=== PATIENT | male | born 1940 | race Caucasian/White ===

== ENCOUNTER 2016-12-10 15:03 | Inpatient (IN) | payer OTHER ==
[~2016-12-10] VITALS: Ht 165.1 cm; Wt 71.9 kg
[~2016-12-10 15:03] MED LIST: AMLODIPINE10 MG PO; ASPIRIN81 M1 PO; ATI0.5 PO; BREO ELLIPTA1 POW IH; CARVEDILOL25 M1 PO; CARVEDILOL25 MG PO; CARVEDILOL3.125 M1 PO; COMINH INH; COUMADIN2 MG PO; COUMADIN2.5 MG PO; COUMADIN3 MG PO; COUMADIN5 MG PO; DALIRESP500 MCG PO; DETROL PO; DIALYVITE 8001 TAB PO; DIO160 PO; DUONEB3 ML NEB; ECO81 PO; HEP25PM IV; HUMALOG KWIK PEN; HUMALOG100 U/ML SC; HUMI SC; IMODIUM A-D2 M2 PO; K-POTASSIUM CH20 ME1 PO; LAC PO; LANTUS SOLO STAR; LANTUS SOLOS100 U/M1 SC; LANTUS SOLOS100 U/M1 SQ; LASIX40 MG PO; LASIX80 MG PO; LEV500 PO; LEVAQUIN750 MG PO; LORAZEPAM1 MG PO; LUMIGAN2.5 M1 OP; MEDDP PO; METOLAZONE5 MG PO; METOPROLOL50 MG PO; NITROSTAT0.4 MG SL; PRAVASTATIN SOD40 M1 PO; PRAVASTATIN40 M1 PO; PROAIR HFA0.09 MG/A1 IH; PULMICORT0.5 MG/2 M IH; RENVELA800 M1 PO; SIMVASTATIN40 MG PO; SYMBICORT1 AE2 IH; TYLENOL EXTRA500 M2 PO; [UNRECOGNIZED DRUG - OTHER] PO
[2016-12-10 17:30] LABS: PLATELET COUNT 312 x10^3mcL (130-400); RED CELL DISTRIBUTION WIDTH 14.4 % (11.5-14.5)
[2016-12-10 17:34] LABS: T3 TOTAL 0.74 ng/mL
[2016-12-10 17:37] LABS: ALKALINE PHOSPHATASE 75 U/L (46-116); AST/SGOT 9 U/L (15-37); BILIRUBIN TOTAL 0.63 mg/dL (0.20-1.00); CALCIUM 8.9 mg/dL (8.5-10.1); CARBON DIOXIDE 30.1 mmol/L (21-32); CHLORIDE SERUM 102 mmol/L (98-107); CHOLESTEROL 171 mg/dL (<200); CHOLESTEROL/HDL RATIO 3.2; GLUCOSE SERUM 286 mg/dL (74-106); HDL CHOLESTEROL 53 mg/dL (40-60); LIPASE 166 IU/L (73-393); POTASSIUM SERUM 4.1 mmol/L (3.5-5.1); SODIUM SERUM 142 mmol/L (136-145); TOTAL PROTEIN, SERUM 7.7 g/dL (6.4-8.2); TRIGLYCERIDES 130 mg/dL (<150)
[2016-12-10 17:42] LABS: ALBUMIN 3.1 g/dL (3.4-5.0)
[2016-12-10 17:43] LABS: CREATININE SERUM 6.2 mg/dL (0.7-1.3)
[2016-12-10 18:06] LABS: FREE T4 1.04 ng/dL (0.76-1.46)
[2016-12-10 18:07] LABS: ALT/SGPT 13 U/L (16-63)
[2016-12-10 18:11] LABS: UA SPECIFIC GRAVITY 1.015 (1.005-1.035); microscopic required? YES; urine erythrocyte 2+ (NEGATIVE)
[2016-12-10] MEDS ORDERED: CARVEDILOL3.125 M1 PO (19:34)
[2016-12-10 19:37] LABS: BAND NEUTROPHIL 7 % (0-10); SEGMENTED NEUTROPHILS 78 % (37-75)
[2016-12-10 19:38] LABS: MONOCYTE 9 % (0-7); PLATELET MORPHOLOGY PLATELETS NORMAL; rbc morphology (normal/abnorm) NORMAL (NORMAL)
[2016-12-10 19:58] LABS: MAGNESIUM 2.1 mg/dL (1.8-2.4); PHOSPHOROUS 3.7 mg/dL (2.5-4.9)
[2016-12-10] MEDS ORDERED: DIGOXIN0.125 M1 PO (22:04)
[2016-12-11] VITALS (7 sets, daily range): BP systolic 86–171; BP diastolic 41–78
[2016-12-11] MEDS ORDERED: LORAZEPAM0.5 MG PO (05:43)
[2016-12-11 09:25] LABS: PLATELET COUNT 236 x10^3mcL (130-400)
[2016-12-11 09:35] LABS: RED CELL DISTRIBUTION WIDTH 14.6 % (11.5-14.5)
[2016-12-11 09:38] LABS: CALCIUM 7.7 mg/dL (8.5-10.1); CARBON DIOXIDE 27.8 mmol/L (21-32); CHLORIDE SERUM 108 mmol/L (98-107); GLUCOSE SERUM 175 mg/dL (74-106); MAGNESIUM 1.7 mg/dL (1.8-2.4); PHOSPHOROUS 5.2 mg/dL (2.5-4.9); POTASSIUM SERUM 4.2 mmol/L (3.5-5.1); SODIUM SERUM 145 mmol/L (136-145)
[2016-12-11 09:41] LABS: CREATININE SERUM 7.4 mg/dL (0.7-1.3)
[2016-12-11 11:45] LABS: BAND NEUTROPHIL 5 % (0-10); BASOPHIL 0 % (0-2); MONOCYTE 4 % (0-7); SEGMENTED NEUTROPHILS 88 % (37-75)
[2016-12-11 11:47] LABS: PLATELET MORPHOLOGY PLATELETS NORMAL; rbc morphology (normal/abnorm) ABNORMAL (NORMAL)
[2016-12-12] VITALS: BP 105/54
[2016-12-12 06:20] VITALS: BP 150/60
[2016-12-12 10:05] VITALS: BP 115/48
[2016-12-12 13:04] VITALS: BP 124/53
[2016-12-12 14:49] LABS: BASOPHIL % 0.2 % (0-2); PLATELET COUNT 257 x10^3mcL (130-400)
[2016-12-12 15:00] LABS: RED CELL DISTRIBUTION WIDTH 14.6 % (11.5-14.5)
[2016-12-12 15:12] LABS: CALCIUM 9.1 mg/dL (8.5-10.1); CARBON DIOXIDE 30.5 mmol/L (21-32); CHLORIDE SERUM 96 mmol/L (98-107); GLUCOSE SERUM 205 mg/dL (74-106); POTASSIUM SERUM 4.1 mmol/L (3.5-5.1); SODIUM SERUM 135 mmol/L (136-145)
[2016-12-12 15:22] LABS: CREATININE SERUM 7.2 mg/dL (0.7-1.3)
[2016-12-12 17:13] VITALS: BP 122/47
[2016-12-13 06:12] VITALS: BP 128/53
[2016-12-13 06:24] LABS: BASOPHIL % 0.6 % (0-2); PLATELET COUNT 274 x10^3mcL (130-400); RED CELL DISTRIBUTION WIDTH 14.3 % (11.5-14.5)
[2016-12-13 06:26] LABS: CALCIUM 8.4 mg/dL (8.5-10.1); CARBON DIOXIDE 26.6 mmol/L (21-32); CHLORIDE SERUM 98 mmol/L (98-107); GLUCOSE SERUM 185 mg/dL (74-106); MAGNESIUM 1.9 mg/dL (1.8-2.4); POTASSIUM SERUM 3.9 mmol/L (3.5-5.1); SODIUM SERUM 136 mmol/L (136-145)
[2016-12-13 06:41] LABS: CREATININE SERUM 7.7 mg/dL (0.7-1.3)
[2016-12-13 09:52] VITALS: BP 139/57
[2016-12-13 14:06] VITALS: BP 138/56
[2016-12-13 18:15] VITALS: BP 103/58
[2016-12-13 20:46] VITALS: BP 148/58
[2016-12-14 05:29] VITALS: BP 149/53
[2016-12-14 06:30] LABS: BASOPHIL % 0.7 % (0-2); PLATELET COUNT 300 x10^3mcL (130-400); RED CELL DISTRIBUTION WIDTH 14.4 % (11.5-14.5)
[2016-12-14 06:47] LABS: CALCIUM 8.6 mg/dL (8.5-10.1); CARBON DIOXIDE 24.2 mmol/L (21-32); CHLORIDE SERUM 101 mmol/L (98-107); GLUCOSE SERUM 147 mg/dL (74-106); PHOSPHOROUS 5.3 mg/dL (2.5-4.9); POTASSIUM SERUM 4.2 mmol/L (3.5-5.1); SODIUM SERUM 137 mmol/L (136-145)
[2016-12-14 06:54] LABS: CREATININE SERUM 8.7 mg/dL (0.7-1.3)
[2016-12-14 09:16] VITALS: BP 149/53
[2016-12-14 10:01] VITALS: BP 150/60
[2016-12-14] MEDS ORDERED: SIMETHICONE80 MG CH (10:12)
[2016-12-14] MEDS ORDERED: APAP/HYDROCODON1 T13 PO (10:12)
[2016-12-14] MEDS ORDERED: MIRUD PO (10:13)
[2016-12-14] MEDS ORDERED: COL100 PO (10:13)
[2016-12-14] MEDS ORDERED: NEP PO (10:14)
[2016-12-14] MEDS ORDERED: LAC PO (10:31)
[2016-12-14] MEDS ORDERED: FLA500 PO (10:31)
[2016-12-14] MEDS ORDERED: LEVAQUIN500 M1 PO (10:31)
== END 2016-12-14 12:00 | disposition home health service (06) | DRG 853 ==
LOC: ED 15:03 → DU 19:00 → MU 12-13 14:34
PROVIDERS: Emergency Medicine; Specialist; Surgery; ADMIT Family Medicine
PROC: 0DTJ0ZZ Resection of Appendix, Open Approach (ICD-10-PCS; principal; 2016-12-10 19:30)
DX: A41.1 Sepsis due to other specified staphylococcus (principal); N17.0 Acute kidney failure with tubular necrosis; N18.6 End stage renal disease; N12 Tubulo-interstitial nephritis, not specified as acute or chronic; K35.80 Unspecified acute appendicitis; I42.9 Cardiomyopathy, unspecified; R65.20 Severe sepsis without septic shock; I48.2 Chronic atrial fibrillation; E11.65 Type 2 diabetes mellitus with hyperglycemia; E11.51 Type 2 diabetes mellitus with diabetic peripheral angiopathy without gangrene; J44.9 Chronic obstructive pulmonary disease, unspecified; Z68.25 Body mass index [BMI] 25.0-25.9, adult; Z87.891 Personal history of nicotine dependence; Z79.01 Long term (current) use of anticoagulants; Z79.4 Long term (current) use of insulin; Z99.2 Dependence on renal dialysis; Z16.24 Resistance to multiple antibiotics
CPT/HCPCS: 36600; 82962; 83880; 84439; 97110-GP; 97116-GP; 97530-GP; J0885-EC; J1170; J1580; J1644; J1885; J1956; J2250; J3010; J3370; J3490; J7030; J7040; J7120; J7620; J7626; Q0092

== ENCOUNTER 2017-01-07 16:58 | Emergency (ER) | payer OTHER, MEDICAID ==
[~2017-01-07 16:58] MED LIST changes: +APAP/HYDROCODON1 T13 PO; +COL100 PO; +DIGOXIN0.125 M1 PO; +FLA500 PO; +LEVAQUIN500 M1 PO; +LORAZEPAM0.5 MG PO; +MIRUD PO; +NEP PO; +SIMETHICONE80 MG CH
[2017-01-07 17:51] LABS: microscopic required? YES; urine erythrocyte 3+ (NEGATIVE)
[2017-01-07 21:14] VITALS: BP 176/84
== END 2017-01-07 21:14 | disposition home or self-care (01) ==
LOC: ED 16:58
PROVIDERS: Emergency Medicine
DX: I86.1 Scrotal varices (principal); N39.0 Urinary tract infection, site not specified; E11.9 Type 2 diabetes mellitus without complications; I10 Essential (primary) hypertension; Z88.0 Allergy status to penicillin; Z79.891 Long term (current) use of opiate analgesic; Z79.01 Long term (current) use of anticoagulants; Z79.899 Other long term (current) drug therapy
CPT/HCPCS: Q0092

== ENCOUNTER 2017-06-09 18:49 | Inpatient (IN) | payer OTHER, MEDICAID ==
[~2017-06-09] VITALS: Ht 165.1 cm; Wt 64.0 kg
[~2017-06-09 18:49] MED LIST changes: -PROAIR HFA0.09 MG/A1 IH; +PROAIR HFA8.5 GM
--- NOTE | 2017-06-09 19:05 | NUR ---
PT BROUGHT TO ED [facility]IA [facility] FROM DIALYSIS FOR GENERALIZED WEAKNESS AND CHEST PAIN. PER REPORT FROM MEDIC PT WAS APPROX 30MINS FROM COMPLETING DIALYSIS AND HE WAS EATING AND FELT SOMETHING STUCK IN HIS CHEST. PT DENIES ANY CHEST PAIN AT THIS TIME. PT AWAKE AND ALERT, RESPS EVEN AND UNLABORED, SKIN WARM/DRY TO TOUCH, NO S/S OF DISTRESS NOTED.
--- NOTE | 2017-06-09 19:10 | NUR ---
MSE COMPLETED BY DR. OLGUIN.
--- NOTE | 2017-06-09 19:22 | NUR ---
REPORT GIVEN TO PEDRO GARCIA.
[2017-06-09 19:49] LABS: PLATELET COUNT 333 x10^3mcL (130-400)
--- NOTE | 2017-06-09 19:50 | NUR ---
PATIENT SEEN WITH COMPLAINT OF RHR, AND CHEST PRESSURE. BLOOD PRESSURE IS LOW. PATIENT IS ALERT AND VERBAL. MD AWARE OF LOW BP. SALINE BOLUS GIVE ,THEN CARDIZEN WAS GIVEN.
[2017-06-09 20:15] LABS: CK-MB 1.5 ng/mL (0-3.6)
[2017-06-09 20:18] LABS: BASOPHIL % 0.6 % (0-2)
[2017-06-09 20:30] LABS: ALKALINE PHOSPHATASE 93 U/L (46-116); BILIRUBIN TOTAL 0.72 mg/dL (0.20-1.00); CALCIUM 8.7 mg/dL (8.5-10.1); CARBON DIOXIDE 33.2 mmol/L (21-32); CHLORIDE SERUM 91 mmol/L (98-107); GLUCOSE SERUM 187 mg/dL (74-106); POTASSIUM SERUM 3.5 mmol/L (3.5-5.1); SODIUM SERUM 135 mmol/L (136-145); TOTAL PROTEIN, SERUM 8.1 g/dL (6.4-8.2)
--- NOTE | 2017-06-09 20:30 | NUR ---
PATIENT'S HEART RATE REMAINS 133-135 . POST 5 MG CARDIZEN. PATIENT IS ASKING FOR FOOD FREQUENTLY, CLAIM HE GET HYPOGLYCEMIC WHEN HUNGRY. MD AWARE. NO FOOD PER MD. 500 ML BOLUS GIVEN AND CARDIZEN 10 MG GIVEN.
[2017-06-09 20:33] LABS: ALBUMIN 3.1 g/dL (3.4-5.0)
[2017-06-09 20:37] LABS: CREATININE SERUM 4.9 mg/dL (0.7-1.3)
[2017-06-09 20:50] LABS: T3 TOTAL 0.75 ng/mL
[2017-06-09 21:00] LABS: FREE T4 1.1 ng/dL (0.76-1.46); FREE THYROXINE INDEX 2.2 ug/dL (1.4-4.5); T4(THYROXINE) 6.2 ug/dL (4.7-13.3)
--- NOTE | 2017-06-09 21:01 | NUR ---
PATIENT KEPT ASKING FOR FOOD. SANDWICH GIVEN, JUICE GIVEN. PATIENT IS ALERT AND ORIENTED. DENIES ANY CHEST PAIN.
[2017-06-09 21:10] LABS: AST/SGOT 35 U/L (15-37)
[2017-06-09 21:18] LABS: ERYTHROCYTE SED RATE 90 mm/hr (0-20)
--- NOTE | 2017-06-09 21:21 | NUR ---
REPORT WAS GIVEN TO NAVA. PATIENT TRANSPORTED TO ROOM 218B
[2017-06-09 21:31] LABS: C REACTIVE PROTEIN < 0.2 mg/dL (<=0.9)
[2017-06-09 21:35] LABS: ALT/SGPT 13 U/L (16-63)
--- NOTE | 2017-06-09 21:45 | NUR ---
REPORT WAS GIVE AND THE PATIENT TRANSPORTED TO ROOM AT THIS TIME.
--- NOTE | 2017-06-09 21:46 | NUR ---
PATIENT MEDICATED WITH ASA . PATIENT MEDICATED WITH CARDIZEM 5 MG.
--- NOTE | 2017-06-09 22:10 | NUR ---
RECEIVED PT FROM ED VIA SELIN, STATED THAT WHEN HE WAS IN DIALYSIS, HE FELT SOMETHING WAS STUCKED ON HIS CHEST AFTER EATING. PT IS AAOX4. NO SOB NOTED, LUNG SOUNDS CTA. ON 2LPM/NC, O2 SAT=99%. DENIES CHEST PAIN/PRESSURE, ST W/ BBB AND DEPRESSED ST ON THE MONITOR, HR AT 130'S. DENIES ABDOMINAL DISCOMFORT. BOWEL SOUNDS ACTIVE. PT ON HEMODILAYSIS EVERY MWF, PT STATED THAT 2.5L WAS REMOVED DURING DIALYSIS. PT STATED THAT HE STILL VOIDS. SIDE RAILS UPX2. CALL LIGHT ON REACH. ENDORSED TO PRIMARY NURSE ELISABET FOR CONTINUITY OF CARE.
[2017-06-09 22:15] VITALS: BP 118/71
[2017-06-09 22:19] VITALS: BP 118/71
[2017-06-09 22:30] VITALS: Ht 165.1 cm; Wt 64.0 kg
--- NOTE | 2017-06-09 22:34 | NUR ---
PT REQUESTING SOME MEDICATION TO HELP SLEEP. DENIES ANY PAIN OR DISCOMFORT AT THIS TIME. REMAINS ON O2 2L VIA NC. NO S/S OF RESPIRATORY DISTRESS NOTED. DR. KING NOTIFIED AND AWARE; CURRENTLY IN TO SEE PT.
[2017-06-09] MEDS ORDERED: NEPHRO-VITE VITA1 EA PO (23:26)
[2017-06-09] MEDS ORDERED: TAMSULOSIN HYD0.4 M1 PO (23:28)
[2017-06-09 23:58] LABS: LIPASE 405 IU/L (73-393); MAGNESIUM 1.8 mg/dL (1.8-2.4); PHOSPHOROUS 2.8 mg/dL (2.5-4.9)
[2017-06-10] VITALS (8 sets, daily range): BP systolic 91–140; BP diastolic 39–66
[2017-06-10 00:01] LABS: AMYLASE 128 U/L (25-115)
[2017-06-10 00:02] LABS: CHOLESTEROL 225 mg/dL (<200); CHOLESTEROL/HDL RATIO 7.3; HDL CHOLESTEROL 31 mg/dL (40-60); TRIGLYCERIDES 1213 mg/dL (<150)
--- NOTE | 2017-06-10 00:40 | NUR ---
PT STILL C/O NOT BEING ABLE TO SLEEP. PT STATES, "I GUESS I'M FEELING TENSE." NOTED BP 98/52, MAP 63, HR 136. REMAINS ON O2 2L VIA NC. NO S/S OF RESPIRATORY DISTRESS NOTED. DR. KING NOTIFIED AND AWARE. AWAITING NEW ORDERS.
--- NOTE | 2017-06-10 01:08 | NUR ---
PT'S HR CURRENTLY IN HIGH 80'S TO LOW 90'S. DENIES ANY CHEST PAIN OR HEADACHE. PT JUST COMPLAINS OF FEELING "TENSE." NO S/S OF RESPIRATORY DISTRESS NOTED. IV NS 500 ML BOLUS INFUSING WELL TO RIGHT FA. CALL LIGHT WITHIN REACH. WILL CONTINUE TO MONITOR.
--- NOTE | 2017-06-10 02:15 | NUR ---
PT RESTING WITH EYES CLOSED. AROUSABLE WITH VERBAL AND TACTILE STIMULI. REMAINS ON O2 2L VIA NC. NO S/S OF RESPIRATORY DISTRESS NOTED. RECHECKED BP 140/49, MAP 79, HR 86. DENIES ANY PAIN OR DISCOMFORT. NO S/S OF DISTRESS NOTED. CALL LIGHT WITHIN REACH. WILL CONTINUE TO MONITOR.
[2017-06-10 03:54] LABS: BASOPHIL % 0.7 % (0-2); PLATELET COUNT 296 x10^3mcL (130-400)
[2017-06-10 03:58] LABS: RED CELL DISTRIBUTION WIDTH 14.8 % (11.5-14.5)
[2017-06-10 04:02] LABS: CALCIUM 8.1 mg/dL (8.5-10.1); CARBON DIOXIDE 32.2 mmol/L (21-32); CHLORIDE SERUM 98 mmol/L (98-107); GLUCOSE SERUM 136 mg/dL (74-106); POTASSIUM SERUM 3.8 mmol/L (3.5-5.1); SODIUM SERUM 135 mmol/L (136-145)
[2017-06-10 04:16] LABS: CREATININE SERUM 5.9 mg/dL (0.7-1.3)
--- NOTE | 2017-06-10 04:43 | NUR ---
RECEIVED CRITICAL LABS CREATININE 5.[address] KING NOTIFIED AND AWARE OF LABS TRENDING UP.
--- NOTE | 2017-06-10 06:10 | NUR ---
PT SLEPT INTERMITTENTLY THROUGHOUT THE NIGHT. AWAKE AND ALERT AT THIS TIME. REMAINS ON O2 2L VIA NC. NO S/S OF RESPIRATORY DISTRESS NOTED. BREATHING EQUAL AND UNLABORED. IV TO RIGHT FA PATENT AND IV NS INFUSING WELL. HEPARIN LOADING DOSE 4,100 UNITS ADMINISTERED AND IV HEPARIN DRIP INITIATED AND INFUSING AT 800 UNITS/HR. NEXT SCHEDULE PTT DOSE ORDERED AT 1200. PT CURRENTLY SITTING UP IN BED. DENIES CHEST PAIN OR ANY PAIN OR DISCOMFORT. BED IN LOW POSITION. SIDE RAILS UP. CALL LIGHT WITHIN REACH. WILL CONTINUE TO MONITOR.
--- NOTE | 2017-06-10 08:00 | NUR ---
ALERT AND ORIENTED. BREATHING FREELY ON 02 2L NC. HOB ELEVATED. SITTING UP FOR BREAKFAST. NS INFUSING 105CC HOUR, HEPARIN INFUSING 800 UNITS Q 1 HOUR. NEXT PTT NOON. DENIES ANY PAIN. TELE # 5 SFIB,BBB, DEPRESSED ST SEGMENT. BRP W/ MINIMAL ASSIST. VSS. CALL WITHIN REACH.
[2017-06-10 08:17] LABS: UA SPECIFIC GRAVITY 1.015 (1.005-1.035); microscopic required? YES; urine erythrocyte TRACE (NEGATIVE)
[2017-06-10 08:29] LABS: AMPHETAMINE QUAL UR NONE DETECTED (NEG <=1000)
--- NOTE | 2017-06-10 09:33 | NUR ---
ECHO PENDING DONE 12/05.
--- NOTE | 2017-06-10 13:54 | NUR ---
PTT 48.7. NO CHANGE IN HEPARIN INFUSION RATE. CONTINUE AT 800 UNITS Q 1 HOUR. NEXT PTT 1800.
--- NOTE | 2017-06-10 14:16 | NUR ---
REPORTED FROM LAB TROP 1.907. PT IS ON HEPARIN RIP.
--- NOTE | 2017-06-10 15:17 | NUR ---
DR. CHANDLER INFORMED OF TROP 1.907. CONTINUE ON HEPARIN DRIP.
--- NOTE | 2017-06-10 16:14 | NUR ---
REPORTED FROM LAB BLOOD IS GRAM (+) COCCI IN CLUSTERS. INFORMED RESIDENT.
--- NOTE | 2017-06-10 16:52 | NUR ---
REPORTED BP 110/39 TO RESIDENT.
--- NOTE | 2017-06-10 19:03 | NUR ---
RESTING QUIETLY. GOOD APPETITE WITH DINNER. SEEN BY DR. HUGHES THIS EVENING. ORDER FOR HEMODIALYSIS TOMORROW. RECEIVED FIRST DOSE OF CLEOCIN, FIRST DOSE LEVAQUIN INFUSING. SUPERVISION WITH BRP. HEPARIN CONTINUES 800 UNITS Q 1 HOUR. WAITING FOR RESULTS ON PTT. CALL LIGHT WITHIN REACH.
--- NOTE | 2017-06-10 19:30 | NUR ---
RECEIVED PT AWAKE AND ALERT. AOX4. VERBAL WITH CLEAR SPEECH. PT HAD JUST FINISHED EATING DINNER. ON O2 2L VIA NC. DENIES ANY SOB. NO S/S OF RESPIRATORY DISTRESS NOTED. LUNGS CLEAR BILATERALLY. ON TELE 5, SR WITH DEPRESSED ST. DENIES ANY CHEST PAIN. ABD SOFT AND ROUND. BOWEL SOUNDS ACTIVE. SKIN WARM AND DRY. IV TO RIGHT FA AND RIGHT HAND PATENT AND INTACT. NO S/S OF INFECTION NOTED. IV NS INFUSING WELL. IV HEPARIN INFUSING AT 800 UNITS/HR. AWAITING PTT LAB RESULT. PT DENIES ANY PAIN OR DISCOMFORT AT THIS TIME. NO S/S OF DISTRESS NOTED. REPOSITIONED FOR COMFORT. SIDE RAILS UP. BED IN LOW POSITION. CALL LIGHT WITHIN REACH. WILL CONTINUE TO MONITOR.
--- NOTE | 2017-06-10 20:00 | NUR ---
PTT RESULT 40.8. REBOLUSED 2,800 UNITS AND INCREASED INFUSION TO 900 UNITS/HR PER HEPARIN PROTOCOL. PT WITH NO S/S OF DISTRESS OR DISCOMFORT NOTED. NEXT PTT LAB DRAW AT 0000.
--- NOTE | 2017-06-10 21:08 | NUR ---
PT C/O ANXIETY AND NOT BEING ABLE TO SLEEP. PRN ATIVAN 0.5 MG PO GIVEN. NO S/S OF RESPIRATORY DISTRESS NOTED. ON O2 2L VIA NC. RECEIVED ROUTINE MEDICATIONS AND SWALLOWED WITHOUT DIFFICULTY. DENIES ANY PAIN. NO S/S OF DISTRESS NOTED. CALL LIGHT WITHIN REACH. WILL CONTINUE TO MONITOR.
--- NOTE | 2017-06-10 22:09 | NUR ---
PT STILL C/O NOT BEING ABLE TO SLEEP. DR. RASHID NOTIFIED AND AWARE. ATIVAN 0.5 MG PO GIVEN PER MD ORDER. WILL CONTINUE TO MONITOR.
--- NOTE | 2017-06-11 00:10 | NUR ---
PT AWAKE AND ALERT. BREATHING EQUAL AND UNLABORED. NOTED NASAL CANNULA OFF, 95% RA. DENIES ANY SOB. NO S/S OF RESPIRATORY DISTRESS NOTED. CURRENTLY, LABS BEING DRAWN FOR PTT. AWAITING PTT RESULTS.
--- NOTE | 2017-06-11 01:26 | NUR ---
RECEIVED CRITICAL LAB PTT 51.1. NO CHANGE IN DOSAGE AT THIS TIME. IV HEPARIN REMAINS INFUSING AT 900 UNITS/HR. NEXT PTT LAB DRAW ORDERED AT 0520.
--- NOTE | 2017-06-11 05:53 | NUR ---
PT SLEPT WELL THROUGHOUT THE NIGHT. ALERT AND AWAKE AT THIS TIME. BREATHING EQUAL AND UNLABORED. NO S/S OF RESPIRATORY DISTRESS NOTED ON ROOM AIR. IV NS PATENT AND INFUSING WELL. IV HEPARIN DRIP INFUSING AT 900 ML/HR. AWAITING PTT LAB DRAW. DENIES ANY PAIN OR DISCOMFORT AT THIS TIME. NO S/S OF DISTRESS NOTED. CALL LIGHT WITHIN REACH. WILL CONTINUE TO MONITOR.
[2017-06-11 06:23] VITALS: BP 128/62
[2017-06-11 07:32] LABS: PLATELET COUNT 288 x10^3mcL (130-400)
--- NOTE | 2017-06-11 08:00 | NUR ---
RECEIVED PATIENT ALERT ADN ORIENTED TIMES FOUR. VITALS AT [facility] TIMEAT 98.2, 90, 22. 128/62, 97%. NOTED LABS ARE THE AIC AT 7.3, WBCS AT 13.3, PT AT 43.4, PATIENT WITH DIGOXIN AND THE RESPIRATORY RATE IS AT 22 AND HE DENIE SANY ACTURE REPIRSTOYR DISTRESS. PATIENT IS ANXIOUS AND ASKS A LOT OF QUESTIONS THAT THE PATIENT MAY OR MAY NOT HAVE, SOME TRACE EDEMA NOTED TO THE LOWER EXTREMITE SAS WELL SOME TO HTE HANDS NOTED. PATIETN ON INSULIN AND RECEIVED INSULIN COVERAGE THIS AM. PATIENT IS ANXIOUS TO BE DIALSYSED WELL TRANSFER FOR PLANS TO [facility] FOR HEART SURGERY.
[2017-06-11 08:07] LABS: CALCIUM 9.1 mg/dL (8.5-10.1); CARBON DIOXIDE 25.9 mmol/L (21-32); CHLORIDE SERUM 101 mmol/L (98-107); GLUCOSE SERUM 155 mg/dL (74-106); MAGNESIUM 2.4 mg/dL (1.8-2.4); PHOSPHOROUS 6.7 mg/dL (2.5-4.9); SODIUM SERUM 139 mmol/L (136-145)
[2017-06-11 09:06] LABS: CREATININE SERUM 7.8 mg/dL (0.7-1.3)
--- NOTE | 2017-06-11 10:14 | NUR ---
PATIENT ASKED TO SPEAK WITH THE DIRECTOR AND PROFESSOR. CALLED AND SHE WILL COME TO TALK TO THE PATIETN. PATIENT IS ANXIOUS AND IS REQUESTING TO HAVE BLOOD SUGAR TAKEN.
--- NOTE | 2017-06-11 10:18 | NUR ---
PER PATIENT REQUEST CHECKED BLOOD SUGAR AND AT 174 AT THIS TIME. PATIENT WAS AT 160 EARLIER AND RECEIVED COVERAGE. THE ORDER ENTRY ADMINISTRATOR IS TO SEE THE PATIENT PER HIS REQUEST.
[2017-06-11 10:25] VITALS: BP 146/61
[2017-06-11 14:01] VITALS: BP 143/66
--- NOTE | 2017-06-11 15:13 | NUR ---
CALLED RECIEVED FROM [facility]ORS [facility] OFFICE AND THEY ARE AWARE NO ORDER HAVE BEEM RECIEVE NAMITA CARRIED OUT THE PATIENT HAS NO BED ASSIGNMENT.
--- NOTE | 2017-06-11 15:14 | NUR ---
BLOOD SUGAR AT 1200 AT 169 AND NO COVERAGE WAS INDICATED AT THIS TIME DUE TO [facility].
[2017-06-11 17:56] VITALS: BP 113/54
--- NOTE | 2017-06-11 19:00 | NUR ---
NUMBERSOUS CONVERGATIONS WITH THE RETAIL SELLING FLOOR LEADER AND PATIENT CONTINUED TO REQUEST INTERVENTION WITH [facility] HE WANTS THE PROCEDURE PLANED TODAY. THERE IS NOT BED AVAILABLE AND THE PATIENT HAS BEEN ADVISED SEVERAL TIMES. HE HAS CALLED DR HUGHES AND [facility]IS CORTES SEVERAL TIMES WELL. PATIEN TWANTS TO BE HOME FOR X MAS . RETAIL SELLING FLOOR LEADER ADVISED THAT HE CAN LEAVE IF HE WISHES BUT THIS WILL NOT CHANGE THE FACT THAT HE NEEDS TO BE TRANSFERED TO A FACILITY TO PREFORM THE CATH ANYWAY. DR HUGHES HAD ARRANGED A HOLD FOR THE CATH AT [facility] BUT NO BED AND PATIENTS AT BEDSIDE AND PATIENT HAD 2000 CC OUPUT WITH THE DIALYSIS TODAY.
--- NOTE | 2017-06-11 20:13 | NUR ---
SHIFT REASSESSMENT DONE.PATIENT ALERT AND ORIENTED. AT BEDSIDE VISITING,SUPPORTIVE OF CARE.BREATHING EASY.MILD GEN WEAKNESS BUT AMBULATORY.NS ORDERED,HEPARIN PROTOCOL AT 900 UNITS,PTT AT THIS TIME,63.NO CHANGE,REMAINS AT 900 UNITS.WILL DO PTT IN 4 HOURS.HAD HD TODAY 1999 OUT,AV SHUNT LUE,HD ACCESS.PATIENT WAITING FOR BED,ALAMANCE.CALL LIGHT IN REACH.
[2017-06-11 20:15] VITALS: BP 143/61
--- NOTE | 2017-06-11 20:46 | NUR ---
NEXT PTT AT MIDNITE,ALREADY BEEN ORDERED.
--- NOTE | 2017-06-11 21:41 | NUR ---
PATIENT ALL PM MEDS GIVEN,WANTED ATIVAN,AND GIVEN,HELP HIM SLEEP.
--- NOTE | 2017-06-12 01:30 | NUR ---
PATIENT DO NOT WANT HIS PTT DONE UNTIL BLOOD PRESSURE IS CHECK,140/80.PATIENT WANTING MORE ATIVAN,GIVEN DILAUDID EARLIER.NOW GIVEN FOR TODAYS DATE,ALSO GIVEN ZOFRAN IVP.
--- NOTE | 2017-06-12 02:45 | NUR ---
PTT AT THIS TIME 51.7,THERAPEUTIC.NEXT PTT IS TOMORROW.
--- NOTE | 2017-06-12 04:03 | NUR ---
DR GAY LAGUNAS NS,PRESENT IV ORDER D5 NS AT 100 CC/ HOUR.MPO AFTER MIDNITE IN CASE HE WILL BE TRANSFER TO [place],CARDIAC CATH PLAN.
[2017-06-12 04:16] VITALS: BP 151/71
--- NOTE | 2017-06-12 05:36 | NUR ---
I AND O MEASURED.PATIENT STILL URINATE EVEN HE IS A HD PATIENT.PATIENT ABLE TO REST AFTER SECOND ATIVAN GIVEN.HEPARIN DRIP AT 900 UNITS.D5 1/2 NS AT 100 CC. HOUR.WILL ENDORSE TO NEXT SHIFT.CALL LIGHT IN REACH.
[2017-06-12 06:50] LABS: PLATELET COUNT 298 x10^3mcL (130-400)
[2017-06-12 06:58] LABS: RED CELL DISTRIBUTION WIDTH 14.8 % (11.5-14.5)
[2017-06-12 07:27] LABS: CALCIUM 8.9 mg/dL (8.5-10.1); CARBON DIOXIDE 23.9 mmol/L (21-32); CHLORIDE SERUM 103 mmol/L (98-107); GLUCOSE SERUM 164 mg/dL (74-106); MAGNESIUM 1.9 mg/dL (1.8-2.4); PHOSPHOROUS 5.3 mg/dL (2.5-4.9); POTASSIUM SERUM 4.1 mmol/L (3.5-5.1); SODIUM SERUM 140 mmol/L (136-145)
[2017-06-12 07:42] LABS: CREATININE SERUM 5.5 mg/dL (0.7-1.3)
--- NOTE | 2017-06-12 08:00 | NUR ---
RECIEVED PATIENT ALERT AND ORIENTED TIMES FOUR. IV INTACT AQND PATIENT HAS BEEN ON BEDREST AND IS VERY ANXIOUS ABOUT CATH PROCEDURE THAT WAS TO BE DONE YESTERDAY BUT NO ROOM AT [facility] NOTED. PATIENT WITH DIMINISHED BREATH SOUNDS AND BOWEL SOUNDS ACTIVE. AYAN PRABHA BEEN GIVEN HIS MEDICATIONS AND LAST GLUCOSE WAS AT 183 AND COVERAGE GIVEN. PATIENT HAS BEEN NPO FOR THIS PENDING TEST AND IS ANXIOUS OFTEN AND OBSESSIVE CALLING THE STAFF AT [facility] AND THE REPAIR WEAVER. AYAN DEAN HISTORY OF AFIB, APPENDECTOMY, CHOLECYSTECTOMY, DIABERES AND HTN. PATIENT HAS ESRD AND HAD LAST DIALYSIS YESTERDAY AND HAD 2000 TAKEN OFF AT THAT TIME. PATIENT HAS BEEN WITH [facility] THAT BROUGHT HIM T THE EMERGENCY ROOM AND HAS BEEN SEEN BY SAUL STEEN AND FLORA. MAYELA HERNANDEZ ALLERGY TO PCN NOTED. CONTINUED ON D5 1/2 NS AT 100CC PER HOUR AND HAS LEVQUIN ORDERED FOR 1800 TODAY. VITALS AT THIS TIME AT 98.9, 104, 18, 158/61, 91 MAP, 96%. MNOTED LABS ARE BUN AT 34.4, BLOOD SUGAR THIS AM AT 149 AND PIC AT 7.3. AYAN SILVA Anastasia AHD O F 10.8/32 AND WBC AT 12.1. WILL CONTINUE TO MONITOR INDICATED. S
--- NOTE | 2017-06-12 09:45 | NUR ---
SEEN BY THE INTERNS AND DR FERNANDO AND ROSE MARY HELM DISCUSSED. PATIEN RAFITA MENDIOLA ANXIOUS ABOUT THE NEWS PRODUCTION ASSISTANT AND THAT HE HAS NOT BEEN ABLE TO GO OR HAVE ARRANGEM,ENT TO GO DUE TO NO BED OF YET. PATIENT HAS BEEN OBCESSIVE ABOUT GETTING HIS NEWS PRODUCTION ASSISTANT TEST DONE. THE FOOD MANAGER AND YESTERDAYS FOOD MANAGER EXPLANED THAT THERE IS NO BED. PATIENT HAS BEEN THOUGH, CALLING CHRIS CORTES AND THE [facility] PULLER ON HIS OWN. THEY TOO ADVISED THAT THERE IS NO BED YET.
[2017-06-12 10:06] VITALS: BP 158/61
--- NOTE | 2017-06-12 11:43 | NUR ---
PER CHARGE THE PATIENT IS FOR TRANSFER TODAY BED IS AVAILABLE AT [facility]. AWAITING FINAL ORDERS FOR TRANSFER. BLOOD SUGA RAT THIS TIME AT 157 AND WILL HOL FRIDASULIN PATIE OZIELIS NPO AT THIS TIME.
[2017-06-12 12:13] VITALS: BP 158/61
[2017-06-12 13:32] VITALS: BP 158/69
--- NOTE | 2017-06-12 15:05 | NUR ---
CALLED REPORT TO STAFF AT [facility] AND ADVISED THE STAFF THAT PLAN IS FOR CATHETERIZATION AT [facility] [employer] [facility]ORD[facility] TODAY. PATIENT HAS BEEN VERY ANXIOUS ABOUT THE TRANSFER AND IS NOW CONTENT HE WILL BE GOING TODAY. BLOOD SUGAR AT LUNCH AT 159 AND NO INSULIN GIVEN DUE TO NPO STATUS. PATEINT WILL BE CONTINUED MONITORED FOR CHEST PAIN OR SOB INDICATED.
[2017-06-12] MEDS ORDERED: HEP25PM IV (15:31)
== END 2017-06-12 16:19 | disposition short-term general hospital (02) | DRG 280 ==
LOC: ED 18:49 → DU 20:58
PROVIDERS: Specialist; ADMIT Family Medicine
DX: I21.4 Non-ST elevation (NSTEMI) myocardial infarction (principal); N18.6 End stage renal disease; N17.0 Acute kidney failure with tubular necrosis; I12.0 Hypertensive chronic kidney disease with stage 5 chronic kidney disease or end stage renal disease; E87.1 Hypo-osmolality and hyponatremia; D68.69 Other thrombophilia; I48.0 Paroxysmal atrial fibrillation; E11.51 Type 2 diabetes mellitus with diabetic peripheral angiopathy without gangrene; K21.9 Gastro-esophageal reflux disease without esophagitis; E78.1 Pure hyperglyceridemia; E78.5 Hyperlipidemia, unspecified; Z99.2 Dependence on renal dialysis; Z79.4 Long term (current) use of insulin; Z68.27 Body mass index [BMI] 27.0-27.9, adult; Z79.01 Long term (current) use of anticoagulants; F17.290 Nicotine dependence, other tobacco product, uncomplicated
CPT/HCPCS: 36600; 82962; 83880; 84439; 87804; G0480; J1644; J1956; J2405; J3490; J7030; J7040; J7042; Q0092

== ENCOUNTER 2018-02-09 14:31 | Inpatient (IN) | payer OTHER, MEDICAID ==
[~2018-02-09] VITALS: Ht 165.1 cm; Wt 66.3 kg
[~2018-02-09 14:31] MED LIST changes: +NEPHRO-VITE VITA1 EA PO; +TAMSULOSIN HYD0.4 M1 PO
[2018-02-09 14:42] VITALS: Ht 165.1 cm; Wt 66.3 kg
[2018-02-09 15:16] LABS: BASOPHIL % 0.4 % (0-2); PLATELET COUNT 371 x10^3mcL (130-400); RED CELL DISTRIBUTION WIDTH 13.4 % (11.5-14.5)
[2018-02-09 15:48] LABS: UA SPECIFIC GRAVITY 1.015 (1.005-1.035); microscopic required? YES; urine erythrocyte TRACE (NEGATIVE)
[2018-02-09 15:50] LABS: ALKALINE PHOSPHATASE 74 U/L (46-116); AST/SGOT 13 U/L (15-37); CALCIUM 8.8 mg/dL (8.5-10.1); CARBON DIOXIDE 33.4 mmol/L (21-32); CHLORIDE SERUM 94 mmol/L (98-107); GLUCOSE SERUM 314 mg/dL (74-106); POTASSIUM SERUM 3.8 mmol/L (3.5-5.1); SODIUM SERUM 133 mmol/L (136-145); TOTAL PROTEIN, SERUM 7.5 g/dL (6.4-8.2)
[2018-02-09 15:54] LABS: CREATININE SERUM 7.4 mg/dL (0.7-1.3)
[2018-02-09 16:00] LABS: ALT/SGPT 16 U/L (16-63)
[2018-02-09 16:11] LABS: MAGNESIUM 2.1 mg/dL (1.8-2.4)
[2018-02-09] MEDS ORDERED: DIGOXIN0.25 M1 PO (16:21)
[2018-02-09] MEDS ORDERED: COUMADIN3 MG PO (16:23)
[2018-02-09 16:50] VITALS: BP 150/63
[2018-02-09 17:32] VITALS: BP 150/63
[2018-02-09 20:37] VITALS: BP 142/51
[2018-02-10 05:27] VITALS: BP 135/54
[2018-02-10 06:05] LABS: PLATELET COUNT 339 x10^3mcL (130-400); RED CELL DISTRIBUTION WIDTH 13.8 % (11.5-14.5)
[2018-02-10 06:31] LABS: ALKALINE PHOSPHATASE 65 U/L (46-116); ALT/SGPT 14 U/L (16-63); AST/SGOT 11 U/L (15-37); BILIRUBIN TOTAL 0.51 mg/dL (0.20-1.00); CARBON DIOXIDE 31.4 mmol/L (21-32); CHLORIDE SERUM 96 mmol/L (98-107); GLUCOSE SERUM 232 mg/dL (74-106); MAGNESIUM 2.8 mg/dL (1.8-2.4); PHOSPHOROUS 5.9 mg/dL (2.5-4.9); SODIUM SERUM 136 mmol/L (136-145)
[2018-02-10 07:00] LABS: ALBUMIN 2.6 g/dL (3.4-5.0)
[2018-02-10 07:01] LABS: CREATININE SERUM 9.3 mg/dL (0.7-1.3)
[2018-02-10 09:57] VITALS: BP 126/45
[2018-02-10 11:36] LABS: BAND NEUTROPHIL 4 % (0-10); BASOPHIL 0 % (0-2); MONOCYTE 13 % (0-7); SEGMENTED NEUTROPHILS 55 % (37-75)
[2018-02-10 11:37] LABS: rbc morphology (normal/abnorm) NORMAL (NORMAL)
[2018-02-10 11:38] LABS: PLATELET MORPHOLOGY PLATELETS NORMAL
[2018-02-10 14:20] VITALS: BP 133/48
[2018-02-10 18:34] VITALS: BP 175/61
[2018-02-10 21:20] VITALS: BP 160/60
[2018-02-11 06:19] LABS: ALKALINE PHOSPHATASE 63 U/L (46-116); ALT/SGPT 13 U/L (16-63); AST/SGOT 7 U/L (15-37); BILIRUBIN TOTAL 0.5 mg/dL (0.20-1.00); CALCIUM 8.9 mg/dL (8.5-10.1); CARBON DIOXIDE 27.1 mmol/L (21-32); CHLORIDE SERUM 95 mmol/L (98-107); GLUCOSE SERUM 162 mg/dL (74-106); MAGNESIUM 2.7 mg/dL (1.8-2.4); PHOSPHOROUS 6.3 mg/dL (2.5-4.9); POTASSIUM SERUM 4.1 mmol/L (3.5-5.1); SODIUM SERUM 134 mmol/L (136-145); TOTAL PROTEIN, SERUM 6.9 g/dL (6.4-8.2)
[2018-02-11 06:25] LABS: BASOPHIL % 0.4 % (0-2); PLATELET COUNT 321 x10^3mcL (130-400); RED CELL DISTRIBUTION WIDTH 13.4 % (11.5-14.5)
[2018-02-11 06:43] VITALS: BP 165/72
[2018-02-11 06:57] LABS: ALBUMIN 2.7 g/dL (3.4-5.0)
[2018-02-11 08:14] VITALS: BP 158/71
[2018-02-11 08:27] LABS: CREATININE SERUM 10.7 mg/dL (0.7-1.3)
[2018-02-11 10:11] VITALS: BP 155/57
[2018-02-11 13:26] VITALS: BP 120/44
== END 2018-02-11 14:30 | disposition home or self-care (01) | DRG 308 ==
LOC: ED 14:31 → DU 16:03
PROVIDERS: Emergency Medicine; Internal Medicine Pulmonary Disease
DX: R00.0 Tachycardia, unspecified (principal); N18.6 End stage renal disease; I12.0 Hypertensive chronic kidney disease with stage 5 chronic kidney disease or end stage renal disease; D68.9 Coagulation defect, unspecified; E11.22 Type 2 diabetes mellitus with diabetic chronic kidney disease; E78.5 Hyperlipidemia, unspecified; N40.0 Benign prostatic hyperplasia without lower urinary tract symptoms; T46.0X5A Adverse effect of cardiac-stimulant glycosides and drugs of similar action, initial encounter; Z99.2 Dependence on renal dialysis; Z79.4 Long term (current) use of insulin; Z68.26 Body mass index [BMI] 26.0-26.9, adult; Z79.01 Long term (current) use of anticoagulants; Y92.018 Other place in single-family (private) house as the place of occurrence of the external cause; I25.10 Atherosclerotic heart disease of native coronary artery without angina pectoris
CPT/HCPCS: 82962; 94150; A4719; J1815; J3475; J7030; J7620; J7626; P9047; Q0092

== ENCOUNTER 2018-06-22 23:50 | Emergency (ER) | payer OTHER, MEDICAID ==
[~2018-06-22] VITALS: Ht 170.2 cm; Wt 72.6 kg
[~2018-06-22 23:50] MED LIST changes: +DIGOXIN0.25 M1 PO
[2018-06-23 00:20] VITALS: Ht 170.2 cm; Wt 72.6 kg
[2018-06-23 00:42] LABS: BASOPHIL % 0.6 % (0-2); PLATELET COUNT 381 x10^3mcL (130-400); RED CELL DISTRIBUTION WIDTH 13.7 % (11.5-14.5)
[2018-06-23 01:02] LABS: ALKALINE PHOSPHATASE 74 U/L (46-116); ALT/SGPT 17 U/L (16-63); AST/SGOT 18 U/L (15-37); BILIRUBIN TOTAL 0.4 mg/dL (0.20-1.00); CARBON DIOXIDE 38.2 mmol/L (21-32); CHLORIDE SERUM 93 mmol/L (98-107); FREE T4 1.14 ng/dL (0.76-1.46); GLUCOSE SERUM 89 mg/dL (74-106); LIPASE 485 IU/L (73-393); POTASSIUM SERUM 3.7 mmol/L (3.5-5.1); SODIUM SERUM 137 mmol/L (136-145); TOTAL PROTEIN, SERUM 7.8 g/dL (6.4-8.2)
[2018-06-23 01:09] LABS: ALBUMIN 3.2 g/dL (3.4-5.0)
[2018-06-23 01:13] LABS: CREATININE SERUM 5.1 mg/dL (0.7-1.3)
[2018-06-23 02:04] VITALS: BP 149/69
== END 2018-06-23 02:05 | disposition short-term general hospital (02) ==
LOC: ED 23:50
PROVIDERS: Emergency Medicine
DX: I62.9 Nontraumatic intracranial hemorrhage, unspecified (principal); I21.3 ST elevation (STEMI) myocardial infarction of unspecified site; J44.9 Chronic obstructive pulmonary disease, unspecified; I10 Essential (primary) hypertension; E11.9 Type 2 diabetes mellitus without complications; I48.91 Unspecified atrial fibrillation; E78.00 Pure hypercholesterolemia, unspecified; Z86.2 Personal history of diseases of the blood and blood-forming organs and certain disorders involving the immune mechanism; Z88.0 Allergy status to penicillin; Z99.2 Dependence on renal dialysis; W10.8XXA Fall (on) (from) other stairs and steps, initial encounter; Y93.89 Activity, other specified; Y92.89 Other specified places as the place of occurrence of the external cause; Y99.8 Other external cause status
CPT/HCPCS: 36415; 83880; 84439; 85378; 87804; G0480